=== PATIENT | female | born 1965 | race Caucasian/White ===

== ENCOUNTER → 2017-02-11 | Outpatient (CLI) | payer OTHER ==
[~2017-02-11] MED LIST: NORCO 5-325 TA1 EACH PO; PAXIL10 MG PO; SENOKOT-S1 TA1 PO; SUMATRIPTAN SU100 MG PO; SYNTHROID25 MCG PO; TEGRETOL XR400 MG PO; ZONISAMIDE 100100 M1 PO
== END ==
LOC: MRI 07:32
DX: I67.82 Cerebral ischemia (principal); J32.0 Chronic maxillary sinusitis; G40.209 Localization-related (focal) (partial) symptomatic epilepsy and epileptic syndromes with complex partial seizures, not intractable, without status epilepticus; G43.909 Migraine, unspecified, not intractable, without status migrainosus

== ENCOUNTER → 2017-03-10 | Outpatient (CLI) | payer OTHER | LOC: RAD 11:34 | DX: S92.911G Unspecified fracture of right toe(s), subsequent encounter for fracture with delayed healing (principal); X58.XXXD Exposure to other specified factors, subsequent encounter ==

== ENCOUNTER 2018-07-09 10:37 | Emergency (ER) | payer OTHER ==
[~2018-07-09] VITALS: Ht 182.9 cm; Wt 95.3 kg
[2018-07-09] MEDS ORDERED: ESTRADIOL 1 MG T1 M1 PO (10:43)
[2018-07-09 11:53] LABS: HEMATOCRIT 42.8 % (37.0-47.0); HEMOGLOBIN 14.7 gm/dL (12.0-15.0); MCH 33.8 pg (26.0-34.0); MCHC 34.3 g/dL (28.0-37.0); MCV 98.4 fL (80.0-100.0); PLATELET COUNT 136 thou/uL (150-400); RBC 4.35 mil/uL (4.20-5.00); RDW 11.5 % (10.5-14.5)
[2018-07-09 12:04] LABS: CALCIUM 8.7 mg/dL (8.5-10.1); CREATININE 0.7 mg/dL (0.6-1.0); POTASSIUM 4.4 mmol/L (3.5-5.1)
[2018-07-09 12:19] LABS: ABSOLUTE NEUTROPHILS 0.6 thou/uL (1.4-8.2); ATYPICAL LYMPHS 5 %
[2018-07-09 12:21] LABS: ANISOCYTOSIS SLIGHT
[2018-07-09] MEDS ORDERED: AMOXICILLIN 50500 MG PO (12:48)
[2018-07-09] MEDS ORDERED: TESSALON PERLE100 MG PO (12:48)
[2018-07-09 12:59] VITALS: BP 136/86
== END 2018-07-09 13:00 | disposition home or self-care (01) ==
LOC: ER 10:37
PROVIDERS: Physician Assistant
DX: R05 Cough (principal); R09.81 Nasal congestion; G43.909 Migraine, unspecified, not intractable, without status migrainosus; F32.9 Major depressive disorder, single episode, unspecified; Z88.6 Allergy status to analgesic agent; Z88.2 Allergy status to sulfonamides; Z88.5 Allergy status to narcotic agent; Z98.890 Other specified postprocedural states

== ENCOUNTER 2018-09-06 09:49 | Emergency (ER) | payer OTHER ==
[~2018-09-06] VITALS: Ht 182.9 cm; Wt 95.3 kg
[~2018-09-06 09:49] MED LIST changes: +AMOXICILLIN 50500 MG PO; +ESTRADIOL 1 MG T1 M1 PO; +TESSALON PERLE100 MG PO
[2018-09-06] MEDS ORDERED: MEDROLDOSEPACK PO (11:04)
[2018-09-06] MEDS ORDERED: HYDROXYZINE HCL25 M1 PO (11:04)
[2018-09-06 11:18] VITALS: BP 148/83
== END 2018-09-06 11:18 | disposition home or self-care (01) ==
LOC: ER 09:49
DX: L20.9 Atopic dermatitis, unspecified (principal); G43.909 Migraine, unspecified, not intractable, without status migrainosus; F32.9 Major depressive disorder, single episode, unspecified; Z88.5 Allergy status to narcotic agent; Z88.6 Allergy status to analgesic agent; Z88.2 Allergy status to sulfonamides; Z98.890 Other specified postprocedural states

== ENCOUNTER → 2018-09-24 | Outpatient (CLI) | payer OTHER ==
[~2018-09-24] MED LIST changes: +HYDROXYZINE HCL25 M1 PO; +MEDROLDOSEPACK PO
== END ==
LOC: RAD 07:53
DX: Z12.31 Encounter for screening mammogram for malignant neoplasm of breast (principal)

== ENCOUNTER 2018-10-28 07:31 | Emergency (ER) | payer OTHER ==
[~2018-10-28] VITALS: Ht 182.9 cm; Wt 93.0 kg
[2018-10-28] MEDS ORDERED: RESTASIS1 EACH OPHTHALMIC (07:53)
[2018-10-28 08:22] LABS: HEMOGLOBIN 12.8 gm/dL (12.0-15.0); MCH 34.7 pg (26.0-34.0); MCHC 35.5 g/dL (28.0-37.0); MCV 97.6 fL (80.0-100.0); PLATELET COUNT 156 thou/uL (150-400); RBC 3.68 mil/uL (4.20-5.00); RDW 12.2 % (10.5-14.5); WBC 2.8 thou/uL (4.0-11.0)
[2018-10-28 08:39] LABS: CALCIUM 8.5 mg/dL (8.5-10.1); CREATININE 0.6 mg/dL (0.6-1.0); POTASSIUM 3.8 mmol/L (3.5-5.1)
[2018-10-28 08:45] LABS: TOTAL BILIRUBIN 0.3 mg/dL (<0.1-1.0); TOTAL PROTEIN 6.8 g/dL (6.4-8.2)
[2018-10-28] MEDS ORDERED: PREDNISONE 20 M20 MG PO (08:51)
[2018-10-28] MEDS ORDERED: ACYCLOVIR 200200 MG PO (08:51)
[2018-10-28 09:00] LABS: ABSOLUTE NEUTROPHILS 0.5 thou/uL (1.4-8.2); PLATELET ESTIMATE NORMAL
[2018-10-28 09:07] VITALS: BP 119/72
== END 2018-10-28 08:50 | disposition home or self-care (01) ==
LOC: ER 07:31
PROVIDERS: Emergency Medicine
DX: G51.0 Bell's palsy (principal); D70.9 Neutropenia, unspecified; G43.909 Migraine, unspecified, not intractable, without status migrainosus; F32.9 Major depressive disorder, single episode, unspecified; Z98.890 Other specified postprocedural states; Z88.2 Allergy status to sulfonamides; Z88.5 Allergy status to narcotic agent

== ENCOUNTER → 2019-07-01 | Outpatient (CLI) | payer OTHER ==
[~2019-07-01] MED LIST changes: +ACYCLOVIR 200200 MG PO; +PREDNISONE 20 M20 MG PO; +RESTASIS1 EACH OPHTHALMIC
== END ==
LOC: CAT 07:56
DX: Z13.6 Encounter for screening for cardiovascular disorders (principal); E78.00 Pure hypercholesterolemia, unspecified; I25.10 Atherosclerotic heart disease of native coronary artery without angina pectoris

== ENCOUNTER → 2019-10-27 | Outpatient (CLI) | payer OTHER | LOC: RAD 08:16 → BC 14:49 | DX: Z12.31 Encounter for screening mammogram for malignant neoplasm of breast (principal) ==